=== PATIENT | female | born 1985 | race African-American/Black ===

== ENCOUNTER 2017-01-28 07:49 | Emergency (ER) | payer OTHER ==
[~2017-01-28 07:49] MED LIST: CIPRO PO; ZOFRAN PO
== END 2017-01-28 08:33 | disposition home or self-care (01) ==
LOC: CED 07:49
DX: L02.212 Cutaneous abscess of back [any part, except buttock and flank] (principal); Z88.0 Allergy status to penicillin; Z79.82 Long term (current) use of aspirin; V43.52XA Car driver injured in collision with other type car in traffic accident, initial encounter; Y92.410 Unspecified street and highway as the place of occurrence of the external cause
CPT/HCPCS: 99283